=== PATIENT | female | born 2000 | race Caucasian/White ===

== ENCOUNTER 2018-12-09 12:31 | Emergency (ER) | payer MEDICAID ==
[~2018-12-09] VITALS: Ht 152.4 cm; Wt 44.5 kg
[2018-12-09 12:37] VITALS: BP 122/82
[2018-12-09] MEDS ORDERED: HYDR10SY16 PO (12:37)
--- NOTE | 2018-12-09 13:19 | NUR ---
SEEN AND EXAMINED BY SHAUNA MISHRA
[2018-12-09] MEDS ORDERED: IBUPROFEN 600 MG TABLET PO ONE ×2 (13:25→13:30)
[2018-12-09] MEDS ORDERED: LORAZEPAM 1 MG TABLET ONE (13:25)
--- NOTE | 2018-12-09 13:28 | NUR ---
PT IS WHEELED TO RADIOLOGY VIA [employer].
[2018-12-09] MEDS ORDERED: LORAZEPAM 1 MG TABLET PO ONE (13:30)
[2018-12-09] MEDS ORDERED: HYDROCODONE/APAP 5/325MG 1 EACH TABLET ONE (14:59)
[2018-12-09] MEDS ORDERED: HYDROCODONE/APAP 5/325MG 1 EACH TABLET PO ONE (15:00)
--- NOTE | 2018-12-09 16:24 | NUR ---
Patient discharged to home in stable condition. Written and verbal after care instructions given. Patient verbalizes understanding of instruction.
== END 2018-12-09 16:25 | disposition home or self-care (01) ==
LOC: ER 12:37
DX: M62.838 Other muscle spasm (principal); M25.511 Pain in right shoulder; F41.9 Anxiety disorder, unspecified; V49.59XA Passenger injured in collision with other motor vehicles in traffic accident, initial encounter; Y93.89 Activity, other specified; Y92.488 Other paved roadways as the place of occurrence of the external cause; Y99.8 Other external cause status
CPT/HCPCS: 72040-TC; 73030-TC